=== PATIENT | male | born 1940 | race Caucasian/White ===

== ENCOUNTER 2016-07-22 01:59 | Day surgery (SDC) | payer MEDICARE ==
[~2016-07-22] VITALS: Ht 190.5 cm; Wt 90.9 kg
[2016-07-22] VITALS (7 sets, daily range): BP systolic 112–149; BP diastolic 62–96; PULSE 58–71; RESP 16; O2SAT 96
[2016-07-22] MEDS ORDERED: INDA2.5T2 PO (12:24)
[2016-07-22] MEDS ORDERED: VIT1TABL83 PO (12:24)
[2016-07-22] MEDS ORDERED: MULT1CAP33 PO (12:24)
[2016-07-22] MEDS ORDERED: CALC600T12 PO (12:24)
[2016-07-22] MEDS ORDERED: AMLO5TAB2 PO (12:24)
[2016-07-22] MEDS ORDERED: LOSA50TA37 PO (12:24)
[2016-07-22] MEDS ORDERED: ATOR20TA65 PO (12:24)
[2016-07-22] MEDS ORDERED: ASPI-973 PO (12:24)
[2016-07-22] MEDS ORDERED: ASCO100T11 PO (12:24)
[2016-07-22] MEDS ORDERED: PROP10TA8 PO (12:24)
[2016-07-22] MEDS ORDERED: 0.9% Sodium Chloride 1,000 ML ONE (13:13)
[2016-07-22] MEDS ORDERED: fentaNYL-PF 50 mCg/mL 2 mL Inj ONE (13:13)
[2016-07-22] MEDS ORDERED: Flumazenil 0.1 mg/mL 5 mL Inj IV ONE (13:14)
--- NOTE | 2016-07-22 16:13 | DRSVH ---
PROCEDURE: CT-GUIDED BIOPSY OF THE DEEP BONE ([id number]) Sedation analgesia for 30 minutes. INDICATIONS: PROSTATE CANCER/BIOPSY OF T8 LESION TECHNIQUE: The indications, alternatives, benefits, risks, and possible complications of the procedure were comm unicated to the patient. Informed written consent from the patient was obtained and placed in the art. Continuous EKG and hemodynamic monitoring was started by trained personnel. For radiation dose reduction, the following was used: automated exposure control, adjustment of mA and/or kV according to patient size. The patient was brought to the CT suite and builder beam spiral CT imaging was performed with localization g rid. The appropriate site for percutaneous access to the biopsy target was marked, was prepped and d raped sterilely, and was infused with local anaesthesia. Under CT guidance, a core biopsy trocar and needle set was advanced to the biopsy target, and specimen(s) were obtained. The trocar and needle were then removed, and the patient was sent for post-procedure monitoring. COMPARISON: None. FINDINGS: Biopsy site: Right side of T8 vertebral body Needle: 14 gauge biopsy needle with introducer trocar. Number of passes: 3 Medications: 1% lidocaine for local anaesthesia. IV Fentanyl and Versed for conscious sedation for 30 minutes (see nursing record). Complications: None. IMPRESSION: Successful CT-guided biopsy of a sclerotic T8 vertebral body lesion. Dictated by: Shayy Houston M.D. on 07/22/2016 at 15:43 Approved by: Shayy Houston M.D. on 07/22/2016 at 16:11
--- NOTE | 2016-07-22 16:38 | NUR ---
Pt discharged to home, ambulatory, accompanied by spouse. Pt's VSS, IV discontinued, pt given all discharge instructions and had no further questions at time of d/c.
--- NOTE | 2016-07-25 14:59 | PATH ---
SURGICAL PATHOLOGY Attending Physician:Basil Basilio CASE STATUS: Signed Out PATIENT NAME: ALMA ROSA FIGUEROA PID: [id number] : 1940 DATE COLLECTED:07/22/2016 23:38 SPECIMEN: Bone Marrow, Biopsy CLINICAL HISTORY: PROSTATE CANCER, T8 LESION 1). T-8 FINAL DIAGNOSIS: 1.PROSTATE CANCER, T8 LESION, CORE BIOPSIES: SCLEROTIC BONE WITH METASTATIC PROSTATE CARCINOMA. ICD10 C79.51 NOTE: The finding of metastatic prostate carcinoma was reported by telephone to Dr. Norton on 07/25/[address] Asher. As part of a routine quality engineer, Dr. Don Castro has also reviewed this case and agrees with the diagnosis. GROSS DESCRIPTION: The specimen is received in one formalin filled container labeled with the patient's name, sublabeled "T.-8" and consists of are multiple 0.2-0.3 CM in diameter portions of possible bone which range in length from 0.3-0.7 CM. The specimen is entirely submitted in one cassette. The specimen will be placed in decal for softening. 07/23/2016 DAC MICRO DESCRIPTION: Sections are of cores of sclerotic bone with several nests of neoplastic cells with clear cytoplasm and round to oval nuclei with prominent nucleoli. Immunohistochemical stains are performed to further evaluate the epithelial nests. The patient tissue is stained with the following antibodies, with the following results. Positive and negative controls stain appropriately. AntibodyResult MILLICENT Keratin (MILLICENT)Positive PSA (ER-PR8)Positive Interpretation: This staining pattern supports the H&E impression of metastatic prostate carcinoma. This test was developed and its performance characteristics determined by [facility]. It has not been cleared or approved by the [place]. Food and Drug Administration. The FDA has determined that such clearance or approval is not necessary. This test is used for clinical purposes. It should not be regarded as investigational or for research. ICD-9 CODES: CPT CODES: 1: 03991, 08125, 75217, 96246 Electronically Signed Out Berta Asher MD [facility], [place] [address] Technical component performed at [facility], [facility] [address], [place], [address]
[2016-08-04] MEDS ORDERED: AMLO10TA3 PO (12:55)
[2016-08-04] MEDS ORDERED: ASCO100089 PO (13:06)
== END 2016-07-22 23:59 | disposition home or self-care (01) ==
LOC: SOUO 01:59
PROVIDERS: ATTEND Radiology Vascular & Interventional Radiology
DX: C79.51 Secondary malignant neoplasm of bone (principal); C61 Malignant neoplasm of prostate
CPT/HCPCS: 20225; 77012; 88305; 88311; 88341; 88342; 99152; J2250; J3010; J7030